=== PATIENT | male | born 1945 | race Caucasian/White ===

== ENCOUNTER → 2017-03-04 | Outpatient (CLI) | payer MEDICARE, BC ==
[~2017-03-04] MED LIST: GADOBUTROL 10 MMOL/10 ML VIAL ONE; OMNIPAQUE 350 MG/ML, 100ML BOTTLE ONE
== END ==
LOC: CFH 12:58
PROVIDERS: ATTEND Internal Medicine
DX: K86.2 Cyst of pancreas (principal); I25.119 Atherosclerotic heart disease of native coronary artery with unspecified angina pectoris
CPT/HCPCS: 74183; 75574; A9585; Q9967